=== PATIENT | female | born 1965 | race Caucasian/White ===

== ENCOUNTER 2017-10-20 13:12 | Emergency (ER) | payer OTHER ==
[~2017-10-20] VITALS: Ht 157.5 cm; Wt 79.4 kg
[2017-10-20] MEDS ORDERED: PROTONIX40 M1 (13:27)
[2017-10-20] MEDS ORDERED: ALTACE2.5 MG (13:27)
[2017-10-20] MEDS ORDERED: METFORMIN HCL500 MG (13:27)
[2017-10-20] MEDS ORDERED: SINGULAIR10 MG (13:27)
[2017-10-20] MEDS ORDERED: LIPITOR40 MG (13:27)
[2017-10-20] MEDS ORDERED: ZANTAC300 MG (13:27)
[2017-10-20] MEDS ORDERED: ZOLOFT100 MG (13:28)
[2017-10-20] MEDS ORDERED: SEROQUEL50 MG (13:28)
[2017-10-20] MEDS ORDERED: CLONAZEPAM2 M1 (13:28)
[2017-10-20] MEDS ORDERED: NEURONTIN800 MG (13:28)
[2017-10-20] MEDS ORDERED: VENTOLIN HFA18 GM (13:29)
[2017-10-20] MEDS ORDERED: ADVAIR HFA 115/12 GM (13:29)
== END 2017-10-20 22:20 | disposition home or self-care (01) ==
LOC: ER 13:12
DX: K52.89 Other specified noninfective gastroenteritis and colitis (principal)

== ENCOUNTER 2018-02-05 11:47 | Emergency (ER) | payer OTHER ==
[~2018-02-05] VITALS: Ht 157.5 cm; Wt 77.1 kg
[~2018-02-05 11:47] MED LIST: ADVAIR HFA 115/12 GM; ALTACE2.5 MG; CLONAZEPAM2 M1; LIPITOR40 MG; METFORMIN HCL500 MG; NEURONTIN800 MG; PROTONIX40 M1; SEROQUEL50 MG; SINGULAIR10 MG; VENTOLIN HFA18 GM; ZANTAC300 MG; ZOLOFT100 MG
[2018-02-05] MEDS ORDERED: SINGULAIR10 MG (12:03)
[2018-02-06] MEDS ORDERED: PEPCID40 MG PO (05:43)
[2018-02-06] MEDS ORDERED: PHENERGAN25 MG PO (05:43)
[2018-02-06] MEDS ORDERED: LEVSIN/SL0.125 MG PO (05:43)
== END 2018-02-06 06:12 | disposition home or self-care (01) ==
LOC: ER 11:47
DX: R10.13 Epigastric pain (principal)